=== PATIENT | female | born 1960 | race Caucasian/White ===

== ENCOUNTER 2018-01-22 13:50 | Inpatient (IN) | payer OTHER ==
[~2018-01-22] VITALS: Wt 71.2 kg
[~2018-01-22 13:50] MED LIST: CALCAVITDA PO; IBUP200 PO; SULF500A PO
[2018-01-22] MEDS ORDERED: ATOR10 PO (16:50)
[2018-01-22] MEDS ORDERED: ELOCON (16:52)
[2018-01-22] MEDS ORDERED: ALEN70 PO (16:54)
[2018-01-22] MEDS ORDERED: ELOCON15 GM TOP (16:54)
[2018-01-22] MEDS ORDERED: NAPR500 PO (16:57)
[2018-01-22] MEDS ORDERED: HUMIRA10 MG/0.2 SC (16:57)
[2018-01-22] MEDS ORDERED: Omeprazole20 M1 PO (16:58)
[2018-01-22] MEDS ORDERED: CLOBETTC TOP (17:02)
[2018-01-22 18:16] LABS: BASOPHILS ABSOLUTE AUTO 0.05 K/mm3 (0.00-0.23); BASOPHILS PERCENT AUTO 0 % (0-2); EOSINOPHILS ABSOLUTE AUTO 0.22 K/mm3 (0.00-0.68); EOSINOPHILS PERCENT AUTO 2 % (0-6); Hematocrit 36.1 % (33.0-51.0); Hemoglobin 11.2 g/dL (11.5-16.0); IMMATURE GRAN ABSOLUTE AUTO 0.04 K/mm3 (0.00-0.10); IMMATURE GRAN PERCENT AUTO 0 % (0-1); LYMPHOCYTES PERCENT AUTO 8 % (21-46); MONOCYTES ABSOLUTE AUTO 1.44 K/mm3 (0.16-1.47); MONOCYTES PERCENT AUTO 11 % (4-13); Mean Corpuscular HGB 26.5 pg (26.0-34.0); Mean Corpuscular Volume 85 fL (80-100); NEUTROPHILS PERCENT AUTO 79 % (41-73); RDW Coefficient Variation 12.8 % (11.7-14.2); RDW Standard Deviation 39.8 fL (35.1-46.3); Red Blood Cell Count 4.23 M/mm3 (3.80-5.20); White Blood Cell Count 12.85 K/mm3 (4.00-11.30)
[2018-01-22 18:20] LABS: Platelet Count 292 K/mm3 (150-400)
[2018-01-22 18:33] LABS: Anion Gap 9 mmol/L (6-16); Blood Urea Nitrogen 14 mg/dL (8-24); CO2, Blood 26 mmol/L (21-32); Calcium, Blood 8.7 mg/dL (8.5-10.1); Chloride, Blood 102 mmol/L (98-108); Creatinine, Blood 0.56 mg/dL (0.40-1.00); Glomerular Filtration Rate >60 (60-); Glucose, Blood 89 mg/dL (70-99); Potassium, Blood 3.6 mmol/L (3.5-5.5); Sodium, Blood 137 mmol/L (136-145)
[2018-01-23 04:54] LABS: BASOPHILS ABSOLUTE AUTO 0.05 K/mm3 (0.00-0.23); BASOPHILS PERCENT AUTO 0 % (0-2); EOSINOPHILS ABSOLUTE AUTO 0.19 K/mm3 (0.00-0.68); EOSINOPHILS PERCENT AUTO 2 % (0-6); Hematocrit 32.1 % (33.0-51.0); Hemoglobin 9.9 g/dL (11.5-16.0); IMMATURE GRAN ABSOLUTE AUTO 0.03 K/mm3 (0.00-0.10); IMMATURE GRAN PERCENT AUTO 0 % (0-1); LYMPHOCYTES ABSOLUTE AUTO 1.23 K/mm3 (0.84-5.20); LYMPHOCYTES PERCENT AUTO 10 % (21-46); MONOCYTES ABSOLUTE AUTO 1.51 K/mm3 (0.16-1.47); MONOCYTES PERCENT AUTO 12 % (4-13); Mean Corpuscular HGB 26.3 pg (26.0-34.0); Mean Corpuscular HGB Conc 30.8 g/dL (31.5-36.5); Mean Corpuscular Volume 85 fL (80-100); Mean Platelet Volume 9.3 fL (9.1-12.4); NEUTROPHILS ABSOLUTE AUTO 9.56 K/mm3 (1.96-9.15); NEUTROPHILS PERCENT AUTO 76 % (41-73); Platelet Count 322 K/mm3 (150-400); RDW Coefficient Variation 12.9 % (11.7-14.2); RDW Standard Deviation 39.9 fL (35.1-46.3); Red Blood Cell Count 3.76 M/mm3 (3.80-5.20); White Blood Cell Count 12.57 K/mm3 (4.00-11.30)
[2018-01-23 05:16] LABS: Anion Gap 8 mmol/L (6-16); Blood Urea Nitrogen 10 mg/dL (8-24); Bun/Creatinine Ratio 17.2 (12.0-20.0); CO2, Blood 26 mmol/L (21-32); Calcium, Blood 8.5 mg/dL (8.5-10.1); Chloride, Blood 107 mmol/L (98-108); Creatinine, Blood 0.58 mg/dL (0.40-1.00); Glomerular Filtration Rate >60 (60-); Glucose, Blood 105 mg/dL (70-99); Potassium, Blood 3.7 mmol/L (3.5-5.5); Sodium, Blood 141 mmol/L (136-145)
[2018-01-25 06:36] LABS: BASOPHILS ABSOLUTE AUTO 0.03 K/mm3 (0.00-0.23); BASOPHILS PERCENT AUTO 0 % (0-2); EOSINOPHILS ABSOLUTE AUTO 0.03 K/mm3 (0.00-0.68); EOSINOPHILS PERCENT AUTO 0 % (0-6); Hematocrit 31.3 % (33.0-51.0); Hemoglobin 9.8 g/dL (11.5-16.0); IMMATURE GRAN ABSOLUTE AUTO 0.06 K/mm3 (0.00-0.10); IMMATURE GRAN PERCENT AUTO 1 % (0-1); LYMPHOCYTES ABSOLUTE AUTO 1.44 K/mm3 (0.84-5.20); LYMPHOCYTES PERCENT AUTO 12 % (21-46); MONOCYTES ABSOLUTE AUTO 0.79 K/mm3 (0.16-1.47); MONOCYTES PERCENT AUTO 6 % (4-13); Mean Corpuscular HGB 26.8 pg (26.0-34.0); Mean Corpuscular HGB Conc 31.3 g/dL (31.5-36.5); Mean Corpuscular Volume 86 fL (80-100); NEUTROPHILS ABSOLUTE AUTO 9.96 K/mm3 (1.96-9.15); NEUTROPHILS PERCENT AUTO 81 % (41-73); RDW Coefficient Variation 12.8 % (11.7-14.2); RDW Standard Deviation 40.1 fL (35.1-46.3); Red Blood Cell Count 3.65 M/mm3 (3.80-5.20); White Blood Cell Count 12.31 K/mm3 (4.00-11.30)
[2018-01-25 06:41] LABS: Platelet Count 248 K/mm3 (150-400)
[2018-01-25] MEDS ORDERED: CIPR500 PO (09:49)
[2018-01-25] MEDS ORDERED: HYDR1TAB94 PO (09:50)
[2018-01-25] MEDS ORDERED: METR500 PO (09:50)
== END 2018-01-25 11:02 | disposition home or self-care (01) | DRG 373 ==
LOC: CT 13:50 → SURS 15:59 → CT 01-29 08:00
PROVIDERS: Student in an Organized Health Care Education/Training Program
DX: K65.1 Peritoneal abscess (principal)
CPT/HCPCS: 36415; 74177; 80048; 85025; 87040; 87070; 87075; 87185; 87205; J0295; J0330; J0744; J1650; J2250; J2405; J3010; J7030; J7120; Q9967

== ENCOUNTER → 2018-12-24 | Outpatient (CLI) | payer OTHER ==
[~2018-12-24] MED LIST changes: +ALEN70 PO; +ATOR10 PO; +CIPR500 PO; +CLOBETTC TOP; +ELOCON; +ELOCON15 GM TOP; +HUMIRA10 MG/0.2 SC; +HYDR1TAB94 PO; +METR500 PO; +NAPR500 PO; +Omeprazole20 M1 PO
== END | disposition home or self-care (01) ==
LOC: PLD 12-23 10:11
DX: C44.321 Squamous cell carcinoma of skin of nose (principal)
CPT/HCPCS: 88305

== ENCOUNTER → 2019-12-22 | Outpatient (CLI) | payer OTHER | END | disposition home or self-care (01) | LOC: PLD 12:40 → LAB SHORT 12:40 | DX: D48.5 Neoplasm of uncertain behavior of skin (principal) | CPT/HCPCS: 88305 ==

== ENCOUNTER → 2021-08-29 | Outpatient (CLI) | payer OTHER ==
[2021-08-31 16:07] LABS: HPV 16 Negative (Negative); HPV 18 Negative (Negative); HPV OTHER HR TYPES Negative (Negative)
== END | disposition home or self-care (01) ==
LOC: LAB SHORT 15:35 → LAB 15:35
PROVIDERS: Internal Medicine
DX: Z01.419 Encounter for gynecological examination (general) (routine) without abnormal findings (principal)
CPT/HCPCS: 87624; G0123

== ENCOUNTER → 2022-03-26 | Outpatient (CLI) | payer OTHER ==
[2022-03-26 14:21] LABS: Albumin, Blood 3.3 g/dL (3.4-5.0); Albumin/Globulin Ratio 0.7 (0.8-1.8); Bilirubin, Total 0.6 mg/dL (0.1-1.0); Bun/Creatinine Ratio 26.6 (12.0-20.0); Calcium, Blood 9.9 mg/dL (8.5-10.1); Creatinine, Blood 0.64 mg/dL (0.40-1.00); Globulin, Blood 4.7 g/dL (2.2-4.0); Potassium, Blood 3.9 mmol/L (3.5-5.5); Uric Acid, Blood 3.1 mg/dL (2.6-6.0)
[2022-03-26 14:28] LABS: BASOPHILS ABSOLUTE AUTO 0.06 K/mm3 (0.00-0.23); BASOPHILS PERCENT AUTO 1 % (0-2); EOSINOPHILS ABSOLUTE AUTO 0.14 K/mm3 (0.00-0.68); EOSINOPHILS PERCENT AUTO 2 % (0-6); Hematocrit 45.8 % (33.0-51.0); Hemoglobin 14.9 g/dL (11.5-16.0); IMMATURE GRAN ABSOLUTE AUTO 0.03 K/mm3 (0.00-0.10); IMMATURE GRAN PERCENT AUTO 0 % (0-1); LYMPHOCYTES ABSOLUTE AUTO 1.81 K/mm3 (0.84-5.20); LYMPHOCYTES PERCENT AUTO 19 % (21-46); MONOCYTES ABSOLUTE AUTO 0.84 K/mm3 (0.16-1.47); MONOCYTES PERCENT AUTO 9 % (4-13); Mean Corpuscular HGB 30.1 pg (26.0-34.0); Mean Corpuscular HGB Conc 32.5 g/dL (31.5-36.5); Mean Corpuscular Volume 93 fL (80-100); Mean Platelet Volume 8.6 fL (9.1-12.4); NEUTROPHILS PERCENT AUTO 70 % (41-73); Platelet Count 369 K/mm3 (150-400); RDW Coefficient Variation 12.7 % (11.7-14.2); RDW Standard Deviation 42.7 fL (35.1-46.3); Red Blood Cell Count 4.95 M/mm3 (3.80-5.20); White Blood Cell Count 9.58 K/mm3 (4.00-11.30)
== END | disposition home or self-care (01) ==
LOC: LAB SHORT 14:08 → LAB 14:08
PROVIDERS: Chiropractor
DX: M25.471 Effusion, right ankle (principal)
CPT/HCPCS: 80053; 84550; 85025

== ENCOUNTER 2022-08-06 08:40 | Day surgery (SDC) | payer OTHER ==
[2022-08-06] MEDS ORDERED: METTREX2.5 (09:20)
[2022-08-06] MEDS ORDERED: PRED5 (09:20)
== END 2022-08-06 11:04 | disposition home or self-care (01) ==
DX: Z12.11 Encounter for screening for malignant neoplasm of colon (principal); K52.9 Noninfective gastroenteritis and colitis, unspecified; D12.0 Benign neoplasm of cecum; D12.5 Benign neoplasm of sigmoid colon; K64.8 Other hemorrhoids; K57.30 Diverticulosis of large intestine without perforation or abscess without bleeding; E78.5 Hyperlipidemia, unspecified; Z79.899 Other long term (current) drug therapy

== ENCOUNTER → 2022-12-31 | Outpatient (CLI) | payer OTHER ==
[~2022-12-31] MED LIST changes: +METTREX2.5; +PRED5
== END | disposition home or self-care (01) ==
LOC: PLD 12:15 → LAB 12:15 → LAB SHORT 12:15
DX: D23.39 Other benign neoplasm of skin of other parts of face (principal)
CPT/HCPCS: 88305

== ENCOUNTER → 2023-02-24 | Outpatient (CLI) | payer OTHER | LOC: LAB 18:46 → LAB SHORT 18:46 | DX: N39.0 Urinary tract infection, site not specified (principal) | CPT/HCPCS: 87077; 87086; 87186 ==

== ENCOUNTER → 2023-10-22 | Outpatient (CLI) | payer OTHER | LOC: LAB 08:59 → LAB SHORT 08:59 | DX: D04.61 Carcinoma in situ of skin of right upper limb, including shoulder (principal); L82.1 Other seborrheic keratosis | CPT/HCPCS: 88305 ==